=== PATIENT | male | born 1995 | race Two or more races ===

== ENCOUNTER 2018-06-28 01:19 | Emergency (ER) | payer OTHER ==
--- NOTE | 2018-06-28 01:26 | EDPHY ---
H & P Time Seen by Provider: 06/28/18 01:23 HPI/ROS: HPI CHIEF COMPLAINT: Possible left shoulder dislocation HISTORY OF PRESENT ILLNESS: 22-year-old male, history of recurrent shoulder dislocations patient reports to me he has had over 100 shoulder dislocations. The patient reports that he can typically placed him back in himself. He states it has been recommended that he has she surgery however states he has not done so. Typically gets shoulder dislocations of both shoulders. He was sitting on his couch is unclear what caused the left shoulder dislocation or over he felt pain in a pop and developed left shoulder pain. He tried to get it back in but was unable to do so. EMS was called. Received 100 mcg IV fentanyl prior to arrival and 3 mg IV Versed. He arrives to the emergency room in no acute distress. Allergic to lidocaine. Past Medical History: Denies significant medical history except for asthma Past Surgical History: No recent surgery Social History: Denies drugs alcohol tobacco. Family History: Noncontributory ROS REVIEW OF SYSTEMS: 10 Systems were reviewed and negative with the exception of the elements mentioned in the history of present illness. Exam Constitutional triage nursing summary reviewed, vital signs reviewed, awake/ alert. Eyes normal conjunctivae and sclera, EOMI, PERRLA. HENT normal inspection, atraumatic, moist mucus membranes, no epistaxis, neck supple/ no meningismus, no raccoon eyes. Respiratory clear to auscultation bilaterally, normal breath sounds, no respiratory distress, no wheezing. Cardiovascular rate normal, regular rhythm, no murmur, no edema, distal pulses normal. Gastrointestinal soft, non-tender, no rebound, no guarding, normal bowel sounds, no distension, no pulsatile mass. Genitourinary no CVA tenderness. Musculoskeletal left shoulder x-ray nerve intact, sensation intact, left arm neurovascular intact with good distal pulse, good cap refill. Good receiving room clerk strength. Deformity present appears to be anterior shoulder dislocation. no midline vertebral tenderness, full range of motion, no calf swelling, no tenderness of extremities, no meningismus, good pulses, neurovascularly intact. Skin pink, warm, & dry, no rash, skin atraumatic. Neurologic awake, alert and oriented x 3, AAOx3, moves all 4 extremities equally, motor intact, sensory intact, CN II-XII intact, normal cerebellar, normal vision, normal speech. Psychiatric normal mood/affect. Heme/Lymph/Immune no lymphadenopathy. Differential Diagnosis: Includes but is not limited to in a particular order anterior shoulder dislocation, muscle spasm, fracture Medical Decision Making: Plan for this patient x-ray left shoulder. Will then try to manipulate shoulder back in. Re-evaluation: X-ray left shoulder shows anterior shoulder dislocation. 0206AM: Patient is cursing at me and yelling at me, stating "FUCK YOU" "Fuck all of you guys" Long discussion with patient, and security at bedside is patient getting verbally aggressive with staff as well as myself. RN Daisha at bedside. Patient States he is in "too much pain and thats why he is cursing at me and staff" I have offered to sedate the patient to place his shoulder back in. He is very angry and yelling. We discussed risk vs. Benefit about placing shoulder back in under conscious sedation. He would like Conscious Sedation as he is in too much pain. Plan will be to move patient from ER room 11 to Er room 2 for Conscious Sedation. Xray reviewed Shows ant. shoulder dislocation. 0211AM: Patient would like to be sedated for Reduction of his shoulder. Patient Verbally Consents for Reduction. 0217AM: Patient moved to ER room 2 for full conscious sedation set up. Agrees for conscious sedation. Understands risks versus benefits. Additionally patient apologize for cursing at staff as well as myself. Procedure: Procedural sedation. Patient Verbally Consents to Conscious Sedation. Indication: Left Anterior Shoulder Dislocation. A pre-sedation evaluation was completed on the patient just prior to the procedure. Patient is an appropriate candidate for procedural sedation with ASA class 1 E. The risks of the sedation were discussed including but not limited to dysrhythmia, need for airway intervention or general anesthesia, disability, ; and verbal consent obtained. A timeout was observed and patient's identity confirmed. The patient was sedated with 80 mg of Propofol The patient was monitored with continuous pulse oximetry, capnography, and staff research associate. There were no complications and no significant hypoxemia. I remained at the bedside for the sedation. The total time I spent in the procedural sedation was 45MINS . Post reduction x-ray reviewed by myself. Good anatomic alignment without fracture Time of re-evaluation:352AM The patient is resting comfortably here, Ambulated well. Po Challgenged well. Neurovasc exam: of left arm: good DP, ax. nerve intact. Good receiving room clerk strength, sensation intact throughout. In sling for comfort. Understands to follow up with Orthopaedics. Return precautions discussed. Source: Patient, EMS - Medical/Surgical History Hx Asthma: Yes Hx Chronic Respiratory Disease: No Hx Diabetes: No Hx Cardiac Disease: No Hx Renal Disease: No Hx Cirrhosis: No Hx Alcoholism: No Hx HIV/AIDS: No Hx Splenectomy or Spleen Trauma: No Other PMH: asthma, shoulder dislocations - Social History Smoking Status: Never smoked Constitutional: Initial Vital Signs Temperature (C) 37.1 C 06/28/18 01:27 Heart Rate 93 06/28/18 01:27 Respiratory Rate 16 06/28/18 01:27 Blood Pressure 135/88 H 06/28/18 01:27 O2 Sat (%) 94 06/28/18 01:27 O2 Delivery Mode [Post Room Air Procedure 4th] O2 Delivery Mode [Post Nasal Cannula Procedure 3rd] O2 Delivery Mode [Post Nasal Cannula Procedure 2nd] O2 Delivery Mode [Post Nasal Cannula Procedure 1st] O2 Delivery Mode [Procedural Non-Rebreather Mask 1st] O2 Delivery Mode Nasal Cannula O2 (L/minute) [Post Procedure 2 3rd] O2 (L/minute) [Post Procedure 2 2nd] O2 (L/minute) [Post Procedure 4 1st] O2 (L/minute) 4 Allergies/Adverse Reactions: procaine [From Novocain] Allergy (Verified 06/28/18 01:28) Home Medications: Medication Instructions Recorded Albuterol 01/29/18 Medical Decision Making - Data Points Medications Given: Discontinued Medications Propofol (Diprivan) 100 mg IVP EDNOW ONE Stop: 06/28/18 02:22 Last Admin: 06/28/18 02:43 Dose: 80 mg Departure - Departure Disposition: Home, Routine, Self-Care Clinical Impression: Shoulder dislocation Qualifiers: Encounter type: initial encounter Laterality: left Qualified Code(s): S43.005A - Unspecified dislocation of left shoulder joint, initial encounter Condition: Good Instructions: Shoulder Dislocation (ED) Additional Instructions: 1. Follow up with Orthopedics. 2. Stay in your sling for comfort and protection to prevent you're shoulder from dislocation further. 3. You need to follow up with Orthopedics. Referrals: Patient,NotPresent [Unknown] - As per Instructions Gaudencio Salgado MD [Medical Doctor] - As per Instructions
[2018-06-28] MEDS ORDERED: PROPOFOL 200 MG/20 ML VIAL IVP ONE (02:21)
[2018-06-28 04:07] VITALS: BP 109/67
== END 2018-06-28 04:10 | disposition home or self-care (01) ==
LOC: EDUNIT#
PROC: 0RS Upper Joints, Reposition (ICD-10-PCS; principal; 2018-06-28)
DX: S43.005A Unspecified dislocation of left shoulder joint, initial encounter (principal); X58.XXXA Exposure to other specified factors, initial encounter; Y92.9 Unspecified place or not applicable; Y93.89 Activity, other specified; Y99.9 Unspecified external cause status
CPT/HCPCS: 96374; J2704

== ENCOUNTER 2018-11-10 01:20 | Emergency (ER) | payer SELFPAY ==
[2018-11-10] MEDS ORDERED: NS 1,000 ML IV ONE (01:40)
--- NOTE | 2018-11-10 02:05 | EDPHY ---
H & P Stated Complaint: Meth/marijuana, paranoid, SI - Personal History Current Tetanus Diphtheria and Acellular Pertussis (TDAP): Yes - Medical/Surgical History Hx Asthma: Yes Hx Chronic Respiratory Disease: No Hx Diabetes: No Hx Cardiac Disease: No Hx Renal Disease: No Hx Cirrhosis: No Hx Alcoholism: No Hx HIV/AIDS: No Hx Splenectomy or Spleen Trauma: No Other PMH: asthma, shoulder dislocations - Social History Smoking Status: Light smoker Time Seen by Provider: 11/10/18 02:04 HPI/ROS: Chief Complaint: Suicidal thoughts HPI: Patient abused meth, marijuana because he was suicidal thinking about killing himself he does not think that the meth or marijuana helped. thoughts are severe and he just wants to end it all but he also wants help. He does have delusions and hallucinations after his meth abuse. He denies overdosing on any other medications or drugs. He denies any chest pain, dyspnea, headache or dizziness. He does feel very strange. His symptoms are severe. PMH:Asthma, depression-suicide attempt 4 years ago(percocet OD) Social History: +Meth and THC Family History: Positive for psychiatric disease ROS: Neuro: No headache Constitutional: No Fever, No dizziness ENT: No runny nose, No sore throat Cardiac: No Chest Pain Pulmonary: No Shortness of Breath GI: No abdominal Pain Skin: No rash Heme: No easy bruising : No urinary problems Eyes: No vision problems Musculoskeletal: No neck pain, No back pain Complete Review of systems negative except as noted above Physical Exam: General: Alert in moderate to severe distress from hallucinations and anxiety Eyes: no icterus or pallor ENT: Mouth: Mucus membranes moist Neck: supple, no lymph nodes, no vertebral tenderness, no meningeal signs Lungs CTA bilaterally, no respiratory distress Cardiac: Normal pulses, tachycardic, normal rhythm, normal heart sounds GI: Abd Soft, non tender, no distention Back: Normal inspection, nml ROM, No CVAT, no vertebral tenderness Extremities: No swelling, nml ROM Skin: Warm, pink and dry, no rash, normal turgor Neuro: A&Ox3, MAEE, pressured Speech, hypervigilent Psych delusional, depressed and tearful Reevaluations, MDM, and data interpretation Data Interpretation labs reviewed. ED Course Initial Eval: Pt greeted and advised about plan for care. Given Ativan to decrease hallucinations Reevaluation Patient better after Ativan, stable for psych consult. Medical Decision Making Differential Diagnosis and MDM: Acutely suicidal 22-year-old male presents as a threat to himself. Not homicidal he is delusional i had initially tachycardic with tactile and visual hallucinations consistent with his meth abuse. After sobering he will therefore be cleared for psychiatric evaluation for assistance with placement. Differential diagnosis includes bipolar disorder , depression, substance induced mood disorder, drug intoxication. No signs of life threatening overdose or concommitent medical problems today. (Adryan Weber) Constitutional: Initial Vital Signs Temperature (C) 36.6 C 11/10/18 01:25 Heart Rate 125 H 11/10/18 01:25 Respiratory Rate 20 11/10/18 01:25 Blood Pressure 170/102 H 11/10/18 01:25 O2 Sat (%) 97 11/10/18 01:25 O2 Delivery Mode Room Air Allergies/Adverse Reactions: procaine [From Novocain] Allergy (Verified 06/28/18 01:28) Home Medications: Medication Instructions Recorded Albuterol 01/29/18 Medical Decision Making Other Provider: Care assumed at 6:45 a.m. For this 22-year-old patient who was suicidal, subsequently did methamphetamine. Plan for mental health evaluation after appropriate observation. Amphetamine toxicology positive, received 2 mg IV Ativan. 1430: Signed out to Dr. Morgan with psychiatric evaluation pending. (Byron Anna) 1815: I spoke with the mental health porter marina. She believes that his patient is safe to be discharged home and his cousin contracted for safety. She will speak with psychiatrist to discuss breaking the M1 hold. Patient has been provided resources for outpatient resources. (Jimy Morgan) - Data Points Laboratory Results: Laboratory Results 11/10/18 01:25 11/10/18 01:25 Medications Given: Discontinued Medications Sodium Chloride (Ns) 1,000 mls @ 0 mls/hr IV EDNOW ONE; Wide Open PRN Reason: Protocol Stop: 11/10/18 01:41 Last Admin: 11/10/18 02:00 Dose: 1,000 mls Lactated Ringer's (Lr) 1,000 mls @ 500 mls/hr IV EDNOW ONE Stop: 11/10/18 04:15 Last Admin: 11/10/18 03:04 Dose: 1,000 mls Lorazepam (Ativan Injection) 2 mg IVP EDNOW ONE Stop: 11/10/18 02:16 Last Admin: 11/10/18 02:29 Dose: 2 mg Departure - Departure Disposition: Home, Routine, Self-Care Clinical Impression: Suicidal ideation, Methamphetamine abuse, Altered mental status Condition: Good Instructions: Methamphetamine Abuse (ED), Suicide Prevention (ED) Additional Instructions: 1. Do not abuse meth. 2. Return to the ED for thoughts of self-harm, racing thoughts or other concerns. Referrals: Nikita Putnam DO [Medical Doctor] - As per Instructions Stand Alone Forms: Statement of Treatment
[2018-11-10] MEDS ORDERED: LORazepam 2 MG/ML INJ IVP ONE (02:15)
[2018-11-10] MEDS ORDERED: LR 1,000 ML IV ONE (02:16)
[2018-11-10 18:26] VITALS: BP 135/89
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
--- NOTE | 2018-11-10 20:09 | ASMTTCLDSP ---
TLC Discharge Disposition Disposition: Answers: Discharge If Answers: Yes DISCHARGED: Patient/family given suicide hotline info & SAMHSA brochure? Disposition Notes: Notes: Pt was given resources for MHP. Pt was also given a resource for psychiatric/psychological resources ([facility]) Discharge Concerns/Recommendations: Notes: In consultation with [facility] ED physician, Jimy Morgan MD concurred that pt does not appear to meet 27-65 criteria requiring psychiatric hospitalization as pt does not appear to be an imminent risk of harm to self/others/gravely disabled due to a mental illness condition. Dr. Morgan provided telephone order read back vacating M1 hold at 18:15 hrs. Date and time M1 hold 11/10/2018 06:15 PM vacated (time format is hh:mm): Date Signed: 11/10/2018 08:08 PM Electronically Signed By:Sara Palacios
--- NOTE | 2018-11-10 20:12 | ASMTLCPROG ---
Notes Note: Notes: Correction to TLC eval. Under Discharge Concerns/recommendations: Dr. Jimy Morgan vacated the M1 hold at 18:15, not Dr. Weaver. Date Signed: 11/10/2018 08:11 PM Electronically Signed By:Sara Palacios
== END 2018-11-10 18:27 | disposition home or self-care (01) ==
LOC: EDUNIT# → EEVIPCON 01:20
DX: R45.851 Suicidal ideations (principal); F15.120 Other stimulant abuse with intoxication, uncomplicated; Z91.5 Personal history of self-harm
CPT/HCPCS: 80305; 96374; G0480; J2060